=== PATIENT | female | born 1965 ===

== ENCOUNTER 2017-05-07 13:29 | Emergency (ER) | payer OTHER ==
--- NOTE | 2017-05-07 13:39 | UC ---
Ear Complaint HPI - HPI Summary HPI Summary: 51 female presents with complaints of right ear feeling plugged, decreased hearing and pain that began over the weekend 2-3 days ago. Patient states she was swimming in the ocean over the past week when on vacation. Son also has the same symptoms. Denies using any medication. Denies fever/chills and discharge. No other complaints. Denies dizziness. - History of Current Complaint Stated Complaint: RIGHT EAR COMPLAINT Time Seen by Provider: 05/07/17 13:31 Hx Obtained From: Patient Hx Last Menstrual Period: yrs ?: No Onset/Duration: Sudden Onset, Lasting Days - 3 Severity Initially: Mild Severity Currently: Moderate Pain Intensity: 2 Pain Scale Used: 0-10 Numeric Aggravating Factors: Nothing Alleviating Factors: Nothing Associated Signs/Symptoms: Positive: Hearing Loss. Negative: Foreign Body Sensation, Trauma to Ear - Allergies/Home Medications Allergies/Adverse Reactions: Allergies Allergy/AdvReac Type Severity Reaction Status Date / Time Pseudoephedrine Allergy Intermediate Palpitation Verified 05/07/17 13:54 [From Sudafed] s Ranitidine [From Zantac] Allergy Intermediate Rash Verified 05/07/17 13:54 Sulfa Drugs Allergy Intermediate Rash Verified 05/07/17 13:54 Cephalexin [From Keflex] Allergy Mild Nausea Verified 05/07/17 13:54 PMH/Surg Hx/FS Hx/Imm Hx - Additional Past Medical History Additional PMH: Denies DM, HTN. Has asthma and "renal issues" Respiratory History: Asthma - Surgical History Surgical History: Yes Surgery Procedure, Year, and Place: Nephrostomy, tubaligation 1990, Kidney stones, [facility]-2013.Uterine ablation - Family History Known Family History: Positive: None - Social History Alcohol Use: Rare Substance Use Type: None Smoking Status (MU): Former Smoker When Did the Patient Quit Smoking/Using Tobacco: 3 YRS AGO - Immunization History Most Recent Influenza Vaccination: none Vaccination Up to Date: Yes Review of Systems Constitutional: Negative Skin: Negative Eyes: Negative ENT: Ear Ache Respiratory: Negative Cardiovascular: Negative Neurological: Negative All Other Systems Reviewed And Are Negative: Yes Physical Exam Triage Information Reviewed: Yes Appearance: Well-Appearing, No Pain Distress, Well-Nourished Vital Signs: Temp: 97.8 Resp: 16 HR: 77 BP: 130/22 O2: 98 Vital Signs Reviewed: Yes Eyes: Positive: Conjunctiva Clear ENT: Positive: Normal ENT inspection, Hearing grossly normal, Pharynx normal, TMs normal - left TM and canal normal. right canal cerumen impaction, irrigated and able to visualize canal and TM. Right TM normal, right EAC discharge, erythema, otitis externa noted. left normal. no mastoid tenderness. otherwise normal exam. Negative: Nasal congestion, TM bulging, TM dull, TM red Dental: Negative: Percussion Tenderness @, Cervical Lymphadenopathy Neck: Positive: Supple, Nontender, No Lymphadenopathy Respiratory: Positive: Chest non-tender, Lungs clear, Normal breath sounds, No respiratory distress, No accessory muscle use. Negative: Crackles, Rhonchi, Stridor, Wheezing Cardiovascular: Positive: RRR, No Murmur, Pulses Normal, Brisk Capillary Refill Musculoskeletal: Positive: Strength Intact, ROM Intact, No Edema Neurological: Positive: Alert Skin Exam: Normal Ear Complaint Course/Dx - Course Course Of Treatment: right ear cerumen impaction, irrigated, had relief. otitis externa noted in right EAC. will be treated with cortisporin. aware of worsening signs and symptoms. follow up with PCP. - Differential Dx/Diagnosis Differential Diagnosis/HQI/PQRI: Cerumen Impaction, Otitis Externa, Otitis Media , URI, Other Provider Diagnoses: Right cerumen impaction, Right otitis externa Discharge - Discharge Plan Condition: Stable Disposition: HOME Prescriptions: Neomyc/Polym/HC 1% OTIC SUSP* [Cortisporin Otic Susp 1%*] 4 drop RIGHT EAR TID # 1 btl Patient Education Materials: Otitis Externa (ED), Cerumen Impaction (ED) Referrals: No Primary Care Phys,NOPCP [Primary Care Provider] - [facility] [place] [facility] [Outside] Additional Instructions: Use prescribed antibiotic drops as directed. Tylenol for pain and discomfort. Do not use q-tips or stick anything into ear. Do not submerge ear into water. Avoid swimming for the next 7-10 days. Follow up with PCP. Return if symptoms worsen.
[2017-05-07 13:54] VITALS: BP 130/82
== END 2017-05-07 14:28 | disposition home or self-care (01) ==
LOC: UCCORT 13:29
DX: H61.21 Impacted cerumen, right ear (principal); H60.91 Unspecified otitis externa, right ear; J45.909 Unspecified asthma, uncomplicated; Z88.1 Allergy status to other antibiotic agents; Z88.2 Allergy status to sulfonamides; Z88.8 Allergy status to other drugs, medicaments and biological substances; Z87.891 Personal history of nicotine dependence
CPT/HCPCS: 99213; G0463

== ENCOUNTER 2017-12-06 12:50 | Emergency (ER) | payer OTHER ==
[2017-12-06 13:57] VITALS: BP 128/86
--- NOTE | 2017-12-06 14:03 | UC ---
Throat Pain/Nasal Filippo HPI - HPI Summary HPI Summary: 52 year old female with cough. "Couple days ago I had headache, sore throat, head congestion and cough" and RIGHT ear plugged. Pt c/o nonproductive/hacky cough- chills yesterday and fatigue. NO fever. Taking tylenol/mucinex prn w/ some relief. [ End ] - History of Current Complaint Chief Complaint: UCRespiratory Stated Complaint: CHEST/HEAD CONGESTION Time Seen by Provider: 12/06/17 14:00 Hx Obtained From: Patient Hx Last Menstrual Period: yrs Onset/Duration: Gradual Onset Severity: Mild Cough: Productive Associated Signs & Symptoms: Positive: Sinus Discomfort, Nasal Discharge - Allergies/Home Medications Allergies/Adverse Reactions: Allergies Allergy/AdvReac Type Severity Reaction Status Date / Time Pseudoephedrine Allergy Intermediate Palpitation Verified 12/06/17 13:51 [From Sudafed] s Ranitidine [From Zantac] Allergy Intermediate Rash Verified 12/06/17 13:51 Sulfa Drugs Allergy Intermediate Rash Verified 12/06/17 13:51 Cephalexin [From Keflex] Allergy Mild Nausea Verified 12/06/17 13:51 Home Medications: Home Medications HYDROcodone/ACETAMIN 5-325 MG* [[place] 5-325 TAB*] 1 tab BID PRN 12/06/17 [ History Confirmed 12/06/17] PMH/Surg Hx/FS Hx/Imm Hx Previously Healthy: Yes - Surgical History Surgical History: Yes Surgery Procedure, Year, and Place: Nephrostomy, tubaligation 1990, Kidney stones, [place]-2013.Uterine ablation - Family History Known Family History: Positive: None - Social History Occupation: Employed Full-time Lives: With Family Alcohol Use: Occasionally Substance Use Type: None Smoking Status (MU): Former Smoker When Did the Patient Quit Smoking/Using Tobacco: 3 YRS AGO - Immunization History Most Recent Influenza Vaccination: no 2017 Vaccination Up to Date: Yes Review of Systems Constitutional: Chills, Fatigue ENT: Sore Throat, Ear Ache, Nasal Discharge, Sinus Congestion, Sinus Pain/ Tenderness Respiratory: Cough Is Patient Immunocompromised?: No All Other Systems Reviewed And Are Negative: Yes Physical Exam Triage Information Reviewed: Yes Appearance: Well-Appearing, No Pain Distress, Well-Nourished Vital Signs: Initial Vital Signs Temp 98 F 12/06/17 13:52 Pulse 94 12/06/17 13:52 Resp 16 12/06/17 13:52 BP 128/86 12/06/17 13:52 Pulse Ox 96 12/06/17 13:52 Vital Signs Reviewed: Yes Eye Exam: Normal ENT Exam: Normal Dental Exam: Normal Neck exam: Normal Neck: Positive: 1 Respiratory Exam: Normal Cardiovascular Exam: Normal Musculoskeletal Exam: Normal Neurological Exam: Normal Psychological Exam: Normal Skin Exam: Normal Throat Pain/Nasal Course/Dx - Course Course Of Treatment: treat supportively at this time and if sx worsen over the next 3-4 days then can start antibiotics but appears viral at this time. - Differential Dx/Diagnosis Differential Diagnosis/HQI/PQRI: Otitis Media, Peritonsillar Abscess, Pharyngitis, Sinusitis, Tonsillitis, URI Provider Diagnoses: URI Discharge - Discharge Plan Condition: Good Disposition: HOME Prescriptions: Amoxicillin/Clavulanate TAB* [Augmentin TAB 875*] 875 mg PO BID #20 tab Benzonatate [Benzonatate 200 MG] 200 mg PO TID #20 cap Patient Education Materials: Upper Respiratory Infection (ED) Forms: *Work Release Referrals: No Primary Care Phys,NOPCP [Primary Care Provider] - 4 Days
== END 2017-12-06 14:20 | disposition home or self-care (01) ==
LOC: UCCORT 12:50
DX: J06.9 Acute upper respiratory infection, unspecified (principal); Z87.442 Personal history of urinary calculi; Z88.1 Allergy status to other antibiotic agents; Z88.2 Allergy status to sulfonamides; Z88.8 Allergy status to other drugs, medicaments and biological substances; Z87.891 Personal history of nicotine dependence
CPT/HCPCS: 99212; G0463